=== PATIENT | female | born 1970 | race Caucasian/White ===

== ENCOUNTER 2016-11-02 09:51 | Emergency (ER) | payer OTHER, SELFPAY ==
[~2016-11-02] VITALS: Ht 157.5 cm; Wt 65.9 kg
[~2016-11-02 09:51] MED LIST: NOCURR
[2016-11-02 11:27] VITALS: BP 125/74
[2016-11-02] MEDS ORDERED: IBUPROFEN 800 MG TABLET PO ONE (11:30)
== END 2016-11-02 11:53 | disposition home or self-care (01) ==
LOC: EMS 09:53
DX: H60.91 Unspecified otitis externa, right ear (principal); F17.210 Nicotine dependence, cigarettes, uncomplicated
CPT/HCPCS: 99283

== ENCOUNTER 2016-12-21 13:53 | Emergency (ER) | payer OTHER ==
[~2016-12-21] VITALS: Ht 160 cm; Wt 68.2 kg
[2016-12-21 18:52] LABS: BASOPHILS % (AUTO) 0.9 % (0.0-2.0); EOSINOPHILS % (AUTO) 1.8 % (1.0-6.0); HEMOGLOBIN 12.7 g/dL (12.0-16.0); LYMPHOCYTES # (AUTO) 2.9 K/uL (1.0-4.8); LYMPHOCYTES % (AUTO) 43.7 % (22.0-44.0); MEAN CORPUSCULAR HEMOGLOBIN 30.3 pg (26.0-34.0); MEAN CORPUSCULAR HGB CONC 32.7 G/dL (31.0-37.0); MEAN CORPUSCULAR VOLUME 93 fL (80-100); MONOCYTES # (AUTO) 0.4 K/uL (0.1-1.0); MONOCYTES % (AUTO) 6.5 % (2.0-9.0); NEUTROPHILS # (AUTO) 3.1 K/uL (1.8-7.7); NEUTROPHILS % (AUTO) 47.1 % (40.0-70.0); PLATELET COUNT (AUTO) 228 K/uL (150-450); RED CELL DISTRIBUTION WIDTH 13.4 % (11.5-14.5); WHITE BLOOD COUNT (AUTO) 6.6 K/uL (4.5-11.0)
[2016-12-21 18:55] LABS: APPEARANCE,URINE CLOUDY (CLEAR); GLUCOSE, URINE (UA) NEGATIVE (NEGATIVE); KETONES,URINE NEGATIVE (NEGATIVE); LEUKOCYTE ESTERASE ,URINE NEGATIVE (NEGATIVE); OCCULT BLOOD,URINE NEGATIVE (NEGATIVE); PH,URINE 5.5 (5.0-8.0); PROTEIN,URINE NEGATIVE (NEGATIVE)
[2016-12-21 18:57] LABS: ADD UA MICROSCOPIC NO
[2016-12-21 20:15] VITALS: BP 124/76
== END 2016-12-21 20:16 | disposition home or self-care (01) ==
LOC: EMS 13:55
DX: N83.201 Unspecified ovarian cyst, right side (principal); F17.210 Nicotine dependence, cigarettes, uncomplicated
CPT/HCPCS: 76856; 99285

== ENCOUNTER 2018-05-08 11:38 | Emergency (ER) | payer OTHER ==
[~2018-05-08] VITALS: Ht 157.5 cm; Wt 63.6 kg
[2018-05-08] MEDS ORDERED: LORazepam 2 MG TABLET PO ONE (12:15)
[2018-05-08] MEDS ORDERED: HALOPERIDOL 5 MG TABLET PO ONE (12:15)
[2018-05-08 12:19] LABS: BASOPHILS % (AUTO) 0.8 % (0.0-2.0); EOSINOPHILS % (AUTO) 0.4 % (1.0-6.0); HEMATOCRIT 39.6 % (36-46); HEMOGLOBIN 13.3 g/dL (12.0-16.0); LYMPHOCYTES # (AUTO) 1.8 K/uL (1.0-4.8); LYMPHOCYTES % (AUTO) 29.2 % (22.0-44.0); MEAN CORPUSCULAR HEMOGLOBIN 30.6 pg (26.0-34.0); MEAN CORPUSCULAR HGB CONC 33.5 G/dL (31.0-37.0); MEAN CORPUSCULAR VOLUME 91 fL (80-100); MONOCYTES # (AUTO) 0.4 K/uL (0.1-1.0); NEUTROPHILS % (AUTO) 62.6 % (40.0-70.0); PLATELET COUNT (AUTO) 303 K/uL (150-450); RED BLOOD CELL COUNT(AUTO) 4.34 MIL/uL (4.00-5.20); RED CELL DISTRIBUTION WIDTH 13.6 % (11.5-14.5)
[2018-05-08 12:29] LABS: ANION GAP 7 mmol/L (8-16); CALCIUM, TOTAL 8.4 mg/dL (8.8-10.5); CARBON DIOXIDE 26 mmol/L (22-29); CHLORIDE 106 mmol/L (98-107); CREATININE 0.63 mg/dL (0.60-1.30); GLOMERULAR FILTR. RATE CALC > 60 mL/min (>60); GLUCOSE,RANDOM 93 mg/dL (70-110); POTASSIUM 3.9 mmol/L (3.5-5.1); SODIUM SERUM 139 mmol/L (136-145); UREA NITROGEN, BLOOD 10 mg/dL (7-18)
[2018-05-08 12:34] LABS: ALANINE AMINOTRANSFERASE 26 U/L (12-78); ALBUMIN 3.3 g/dL (3.4-5.0); ALKALINE PHOSPHATASE 65 U/L (46-116); ASPARTATE AMINOTRANSFERASE 21 U/L (15-37); BILIRUBIN,TOTAL 0.8 mg/dL (0.1-1.0); TOTAL PROTEIN, SERUM 6.8 g/dL (6.4-8.2)
[2018-05-08 14:00] VITALS: BP 118/67
== END 2018-05-08 15:02 | disposition home or self-care (01) ==
LOC: EMS 11:39
DX: F41.9 Anxiety disorder, unspecified (principal); F32.9 Major depressive disorder, single episode, unspecified; F17.210 Nicotine dependence, cigarettes, uncomplicated
CPT/HCPCS: 36415; 80053; 85025; 99284; 99406; G0480

== ENCOUNTER 2020-01-16 11:50 | Emergency (ER) | payer OTHER ==
[~2020-01-16] VITALS: Ht 167.6 cm; Wt 70.5 kg
[2020-01-16] MEDS ORDERED: ACETAMINOPHEN 500 MG TABLET PO ONE (12:45)
[2020-01-16 13:25] VITALS: BP 127/78
== END 2020-01-16 13:35 | disposition home or self-care (01) ==
LOC: EMS 11:51
DX: S60.011A Contusion of right thumb without damage to nail, initial encounter (principal); F32.9 Major depressive disorder, single episode, unspecified; F17.210 Nicotine dependence, cigarettes, uncomplicated; W23.0XXA Caught, crushed, jammed, or pinched between moving objects, initial encounter; Y93.89 Activity, other specified; Y92.89 Other specified places as the place of occurrence of the external cause; Y99.8 Other external cause status
CPT/HCPCS: 11740; 99406

== ENCOUNTER 2020-02-29 11:48 | Emergency (ER) | payer OTHER ==
[~2020-02-29] VITALS: Ht 157.5 cm; Wt 61.8 kg
[2020-02-29 12:51] LABS: BASOPHILS % (AUTO) 0.7 % (0.0-2.0); EOSINOPHILS % (AUTO) 0.5 % (1.0-6.0); HEMATOCRIT 44.5 % (36-46); LYMPHOCYTES # (AUTO) 1.8 K/uL (1.0-4.8); LYMPHOCYTES % (AUTO) 19.9 % (22.0-44.0); MEAN CORPUSCULAR HEMOGLOBIN 31.4 pg (26.0-34.0); MEAN CORPUSCULAR HGB CONC 33.7 G/dL (31.0-37.0); MEAN CORPUSCULAR VOLUME 93 fL (80-100); MONOCYTES # (AUTO) 0.5 K/uL (0.1-1.0); MONOCYTES % (AUTO) 5.5 % (2.0-9.0); NEUTROPHILS # (AUTO) 6.5 K/uL (1.8-7.7); NEUTROPHILS % (AUTO) 73.4 % (40.0-70.0); PLATELET COUNT (AUTO) 321 K/uL (150-450); RED BLOOD CELL COUNT(AUTO) 4.78 MIL/uL (4.00-5.20); RED CELL DISTRIBUTION WIDTH 14.6 % (11.5-14.5)
[2020-02-29 12:58] LABS: ANION GAP 5 mmol/L (8-16); CALCIUM, TOTAL 9.3 mg/dL (8.8-10.5); CARBON DIOXIDE 32 mmol/L (22-29); CHLORIDE 102 mmol/L (98-107); CREATININE 0.99 mg/dL (0.60-1.30); GLOMERULAR FILTR. RATE CALC 60 mL/min (>60); GLUCOSE,RANDOM 99 mg/dL (70-110); SODIUM SERUM 139 mmol/L (136-145); UREA NITROGEN, BLOOD 17 mg/dL (7-18)
[2020-02-29 13:03] LABS: ALANINE AMINOTRANSFERASE 43 U/L (12-78); ALBUMIN 3.9 g/dL (3.4-5.0); ALKALINE PHOSPHATASE 77 U/L (46-116); ASPARTATE AMINOTRANSFERASE 27 U/L (15-37); BILIRUBIN,TOTAL 0.3 mg/dL (0.1-1.0); TOTAL PROTEIN, SERUM 8.2 g/dL (6.4-8.2)
[2020-02-29 14:44] VITALS: BP 135/71
== END 2020-02-29 14:49 | disposition home or self-care (01) ==
LOC: EMS 11:49
DX: F10.10 Alcohol abuse, uncomplicated (principal); F32.9 Major depressive disorder, single episode, unspecified; F17.210 Nicotine dependence, cigarettes, uncomplicated; Y90.0 Blood alcohol level of less than 20 mg/100 ml
CPT/HCPCS: 36415; 80053; 85025; 99283; 99406; G0480

== ENCOUNTER 2022-10-04 11:11 | Emergency (ER) | payer OTHER ==
[~2022-10-04] VITALS: Ht 157.5 cm; Wt 65.9 kg
[2022-10-04 11:33] VITALS: BP 160/79
[2022-10-04 12:14] LABS: BASOPHILS % (AUTO) 1.3 % (0.0-2.0); EOSINOPHILS % (AUTO) 0.6 % (1.0-6.0); HEMATOCRIT 45.9 % (36-46); HEMOGLOBIN 15.3 g/dL (12.0-16.0); LYMPHOCYTES # (AUTO) 2.2 K/uL (1.0-4.8); LYMPHOCYTES % (AUTO) 41.9 % (22.0-44.0); MEAN CORPUSCULAR HEMOGLOBIN 30.5 pg (26.0-34.0); MEAN CORPUSCULAR HGB CONC 33.4 G/dL (31.0-37.0); MEAN CORPUSCULAR VOLUME 91 fL (80-100); MONOCYTES # (AUTO) 0.4 K/uL (0.1-1.0); MONOCYTES % (AUTO) 7.5 % (2.0-9.0); NEUTROPHILS # (AUTO) 2.6 K/uL (1.8-7.7); NEUTROPHILS % (AUTO) 48.7 % (40.0-70.0); PLATELET COUNT (AUTO) 298 K/uL (150-450); RED BLOOD CELL COUNT(AUTO) 5.03 MIL/uL (4.00-5.20); RED CELL DISTRIBUTION WIDTH 13.3 % (11.5-14.5)
[2022-10-04] MEDS ORDERED: LORazepam 1 MG TABLET PO ONE (12:15)
[2022-10-04 12:21] LABS: ANION GAP 8 mmol/L (8-16); CALCIUM, TOTAL 9.4 mg/dL (8.8-10.5); CARBON DIOXIDE 30 mmol/L (22-29); CHLORIDE 103 mmol/L (98-107); CREATININE 0.75 mg/dL (0.60-1.30); GLOMERULAR FILTR. RATE CALC > 60 mL/min (>60); GLUCOSE,RANDOM 96 mg/dL (70-110); POTASSIUM 4.3 mmol/L (3.5-5.1); SODIUM SERUM 141 mmol/L (136-145); UREA NITROGEN, BLOOD 9 mg/dL (7-18)
[2022-10-04 12:34] LABS: ALANINE AMINOTRANSFERASE 26 U/L (12-78); ALKALINE PHOSPHATASE 80 U/L (46-116); ASPARTATE AMINOTRANSFERASE 18 U/L (15-37); BILIRUBIN,TOTAL 0.4 mg/dL (0.1-1.0); HCG,QUANTITATIVE 5 mIU/mL (0-6)
[2022-10-04 12:36] LABS: B-TYPE NATRIURETIC PEPTIDE < 5 pg/mL (0-100)
[2022-10-04 12:40] LABS: CREATINE KINASE, TOTAL ONLY 50 U/L (26-192)
[2022-10-04 13:05] LABS: AMPHET/METH SCREEN,URINE NEGATIVE (NEGATIVE); BARBITURATE SCREEN, URINE NEGATIVE (NEGATIVE); BENZODIAZEPINES SCREEN,URINE NEGATIVE (NEGATIVE); CANNABINOID SCREEN,URINE NEGATIVE (NEGATIVE); COCAINE SCREEN,URINE NEGATIVE (NEGATIVE); METHADONE SCREEN, URINE NEGATIVE (NEGATIVE); OPIATE SCREEN,URINE NEGATIVE (NEGATIVE); PHENCYCLIDINE SCREEN,URINE NEGATIVE (NEGATIVE)
== END 2022-10-04 13:48 | disposition home or self-care (01) ==
LOC: EMS 11:25
DX: F41.9 Anxiety disorder, unspecified (principal); R07.89 Other chest pain; F32.A Depression, unspecified; F20.9 Schizophrenia, unspecified; F17.210 Nicotine dependence, cigarettes, uncomplicated; F15.90 Other stimulant use, unspecified, uncomplicated
CPT/HCPCS: 99284; 80053; 82550; 83880; 84484; 84702; 85025; 36415; 93005; 80307 ×2; G0480

== ENCOUNTER 2023-01-06 08:55 | Inpatient (IN) | payer MEDICAID, OTHER ==
[~2023-01-06] VITALS: Ht 162.6 cm; Wt 82.5 kg
[2023-01-06] MEDS ORDERED: RISP2TAB45 PO (09:28)
[2023-01-06] MEDS ORDERED: TRAZ-252 PO (09:28)
[2023-01-06] MEDS ORDERED: RISP3TAB35 PO (09:28)
[2023-01-06] MEDS ORDERED: RISP1TAB48 PO (09:28)
[2023-01-06 10:16] LABS: COVID AG,FIA SOURCE NASAL SWAB
[2023-01-06 10:20] LABS: BASOPHILS % (AUTO) 0.8 % (0.0-2.0); EOSINOPHILS % (AUTO) 0.4 % (1.0-6.0); HEMATOCRIT 44.2 % (36-46); HEMOGLOBIN 14.5 g/dL (12.0-16.0); LYMPHOCYTES # (AUTO) 1.5 K/uL (1.0-4.8); LYMPHOCYTES % (AUTO) 23.8 % (22.0-44.0); MEAN CORPUSCULAR HEMOGLOBIN 30.1 pg (26.0-34.0); MEAN CORPUSCULAR HGB CONC 32.7 G/dL (31.0-37.0); MEAN CORPUSCULAR VOLUME 92 fL (80-100); MONOCYTES # (AUTO) 0.4 K/uL (0.1-1.0); MONOCYTES % (AUTO) 6.5 % (2.0-9.0); NEUTROPHILS # (AUTO) 4.4 K/uL (1.8-7.7); NEUTROPHILS % (AUTO) 68.5 % (40.0-70.0); PLATELET COUNT (AUTO) 286 K/uL (150-450); RED BLOOD CELL COUNT(AUTO) 4.81 MIL/uL (4.00-5.20); RED CELL DISTRIBUTION WIDTH 13.2 % (11.5-14.5)
[2023-01-06 10:29] LABS: ANION GAP 8 mmol/L (8-16); CALCIUM, TOTAL 9.4 mg/dL (8.8-10.5); CARBON DIOXIDE 28 mmol/L (22-29); CHLORIDE 100 mmol/L (98-107); CREATININE 0.78 mg/dL (0.60-1.30); GLOMERULAR FILTR. RATE CALC > 60 mL/min (>60); GLUCOSE,RANDOM 110 mg/dL (70-110); POTASSIUM 4.1 mmol/L (3.5-5.1); SODIUM SERUM 136 mmol/L (136-145)
[2023-01-06 10:34] LABS: ALANINE AMINOTRANSFERASE 43 U/L (12-78); ALBUMIN 3.8 g/dL (3.4-5.0); ALKALINE PHOSPHATASE 101 U/L (46-116); ASPARTATE AMINOTRANSFERASE 29 U/L (15-37); BILIRUBIN,TOTAL 0.6 mg/dL (0.1-1.0)
[2023-01-06] MEDS ORDERED: NICOTINE 21 MG/24 HOUR PATCH TD ONE (11:15)
[2023-01-06] MEDS: LORazepam 2 MG TABLET PO PRN (13:23)
[2023-01-06 18:43] VITALS: BP 98/58
[2023-01-06 20:00] VITALS: BP 104/57
[2023-01-06] MEDS: ZOLPIDEM TARTRATE 10 MG TABLET PO PRN (20:29)
[2023-01-07 08:20] VITALS: BP 100/62
[2023-01-07] MEDS: NICOTINE 14 MG/24 HOUR PATCH TD SCH ×2 (08:37→09:35)
[2023-01-07] MEDS: QUEtiapine FUMARATE 100 MG TABLET PO PRN (09:58)
[2023-01-07] MEDS: LORazepam 2 MG TABLET PO PRN (10:24)
[2023-01-07] MEDS ORDERED: DIPH50CA35 PO (11:36)
[2023-01-07] MEDS ORDERED: PARO10TA71 PO (11:36)
[2023-01-07] MEDS ORDERED: OLAN15TA36 PO (11:36)
[2023-01-07] MEDS: RisperiDONE 1 MG TABLET PO SCH ×2 (12:05→20:38)
[2023-01-07 12:27] LABS: APPEARANCE,URINE CLEAR (CLEAR); BILIRUBIN,URINE NEGATIVE (NEGATIVE); GLUCOSE, URINE (UA) NEGATIVE (NEGATIVE); KETONES,URINE NEGATIVE (NEGATIVE); LEUKOCYTE ESTERASE ,URINE NEGATIVE (NEGATIVE); NITRATE,URINE NEGATIVE (NEGATIVE); OCCULT BLOOD,URINE NEGATIVE (NEGATIVE); PH,URINE 6.5 (5.0-8.0); PROTEIN,URINE NEGATIVE (NEGATIVE); SPECIFIC GRAVITIY, URINE 1.011 (1.003-1.030); UROBILINOGEN,URINE <=1.0 mg/dL (<=1.0)
[2023-01-07 12:38] LABS: AMPHET/METH SCREEN,URINE NEGATIVE (NEGATIVE); BARBITURATE SCREEN, URINE NEGATIVE (NEGATIVE); BENZODIAZEPINES SCREEN,URINE NEGATIVE (NEGATIVE); CANNABINOID SCREEN,URINE NEGATIVE (NEGATIVE); COCAINE SCREEN,URINE NEGATIVE (NEGATIVE); METHADONE SCREEN, URINE NEGATIVE (NEGATIVE); OPIATE SCREEN,URINE NEGATIVE (NEGATIVE); PHENCYCLIDINE SCREEN,URINE NEGATIVE (NEGATIVE)
[2023-01-07] MEDS: TraZODone HCL 50 MG TABLET PO SCH (20:38)
[2023-01-08 04:21] VITALS: BP 101/68
[2023-01-08 07:16] VITALS: BP 105/68
[2023-01-08] MEDS: LORazepam 2 MG TABLET PO PRN ×2 (07:27→15:50)
[2023-01-08] MEDS: RisperiDONE 1 MG TABLET PO SCH ×2 (08:19→21:10)
[2023-01-08] MEDS: NICOTINE 14 MG/24 HOUR PATCH TD SCH (08:20)
[2023-01-08 08:32] VITALS: BP 102/63
[2023-01-08] MEDS: TraZODone HCL 50 MG TABLET PO SCH (21:09)
[2023-01-08 23:11] VITALS: BP 90/61
[2023-01-09] MEDS: RisperiDONE 1 MG TABLET PO SCH ×2 (08:11→20:26)
[2023-01-09] MEDS: LORazepam 2 MG TABLET PO PRN ×2 (08:11→15:53)
[2023-01-09] MEDS: NICOTINE 14 MG/24 HOUR PATCH TD SCH (08:15)
[2023-01-09 08:29] VITALS: BP 105/73
[2023-01-09 20:03] VITALS: BP 125/80
[2023-01-09] MEDS: ZOLPIDEM TARTRATE 10 MG TABLET PO PRN (20:26)
[2023-01-09] MEDS: TraZODone HCL 50 MG TABLET PO SCH (20:26)
[2023-01-10 04:13] VITALS: BP 107/69
[2023-01-10] MEDS: QUEtiapine FUMARATE 100 MG TABLET PO PRN ×2 (04:16→13:24)
[2023-01-10] MEDS: LORazepam 2 MG TABLET PO PRN ×3 (04:16→17:31)
[2023-01-10] MEDS: RisperiDONE 1 MG TABLET PO SCH ×2 (08:20→20:32)
[2023-01-10] MEDS: NICOTINE 14 MG/24 HOUR PATCH TD SCH (08:39)
[2023-01-10] MEDS: TraZODone HCL 50 MG TABLET PO SCH (20:32)
[2023-01-10] MEDS: ZOLPIDEM TARTRATE 10 MG TABLET PO PRN (21:24)
[2023-01-10 21:26] VITALS: BP 101/63
[2023-01-11] MEDS: LORazepam 2 MG TABLET PO PRN ×2 (06:35→17:04)
[2023-01-11] MEDS: QUEtiapine FUMARATE 100 MG TABLET PO PRN ×2 (06:35→17:04)
[2023-01-11 08:30] VITALS: BP 100/60
[2023-01-11] MEDS: NICOTINE 14 MG/24 HOUR PATCH TD SCH (08:32)
[2023-01-11] MEDS: RisperiDONE 1 MG TABLET PO SCH ×2 (08:32→20:33)
[2023-01-11 20:03] VITALS: BP 110/78
[2023-01-11] MEDS: TraZODone HCL 50 MG TABLET PO SCH (20:33)
[2023-01-11] MEDS: ZOLPIDEM TARTRATE 10 MG TABLET PO PRN (20:33)
[2023-01-12] MEDS: LORazepam 2 MG TABLET PO PRN (07:00)
[2023-01-12] MEDS: RisperiDONE 1 MG TABLET PO SCH (08:05)
[2023-01-12] MEDS: NICOTINE 14 MG/24 HOUR PATCH TD SCH (08:05)
[2023-01-12 08:34] VITALS: BP 105/60
[2023-01-12] MEDS ORDERED: TRAZ-252 PO ×2 (12:55→23:18)
[2023-01-12] MEDS ORDERED: RISP2TAB45 PO (12:55)
[2023-01-12] MEDS ORDERED: LITH450CRT PO (12:55)
[2023-01-12] MEDS ORDERED: OLAN10TA26 PO (12:55)
[2023-01-12] MEDS ORDERED: RISP1TAB98 PO (23:18)
== END 2023-01-12 15:45 | disposition home or self-care (01) | DRG 750 ==
LOC: EMS 08:56 → B3A 12:50
PROVIDERS: ADMIT Psychiatry & Neurology Psychiatry; ATTEND Psychiatry & Neurology Psychiatry
DX: F25.1 Schizoaffective disorder, depressive type (principal); R45.851 Suicidal ideations; F41.9 Anxiety disorder, unspecified; G47.00 Insomnia, unspecified; F17.210 Nicotine dependence, cigarettes, uncomplicated; Z20.822 Contact with and (suspected) exposure to COVID-19; I10 Essential (primary) hypertension; Z79.899 Other long term (current) drug therapy; Z91.51 Personal history of suicidal behavior
CPT/HCPCS: 80053; 80307; 81003; 85025; 87081; 87340; 99285; G0480

== ENCOUNTER 2023-08-11 10:21 | Emergency (ER) | payer MEDICAID, OTHER ==
[~2023-08-11] VITALS: Ht 157.5 cm; Wt 86.4 kg
[~2023-08-11 10:21] MED LIST changes: -NOCURR; +RISP-31 PO; +RISP2TAB45 PO; +TRAZ-252 PO
[2023-08-11 10:23] VITALS: BP 150/100; PULSE 90; RESP 16; TEMP 98.3
[2023-08-11] MEDS ORDERED: IBUP-1492 PO (10:45)
[2023-08-11] MEDS ORDERED: ACETAMINOPHEN 500 MG TABLET PO ONE (10:45)
[2023-08-11] MEDS ORDERED: LIDOCAINE 5% TRANSDERMAL PATCH TD ONE (10:45)
[2023-08-11] MEDS ORDERED: LIDO700A15 TP (10:45)
[2023-08-11] MEDS ORDERED: ACET-3385 PO (10:45)
== END 2023-08-11 11:03 | disposition home or self-care (01) ==
LOC: EMS 10:22
DX: S13.4XXA Sprain of ligaments of cervical spine, initial encounter (principal); F10.20 Alcohol dependence, uncomplicated; F41.9 Anxiety disorder, unspecified; F32.A Depression, unspecified; F20.9 Schizophrenia, unspecified; F17.210 Nicotine dependence, cigarettes, uncomplicated; F15.90 Other stimulant use, unspecified, uncomplicated; Z98.890 Other specified postprocedural states; X58.XXXA Exposure to other specified factors, initial encounter; Y93.89 Activity, other specified; Y92.89 Other specified places as the place of occurrence of the external cause; Y99.8 Other external cause status
CPT/HCPCS: 99283

== ENCOUNTER 2024-06-16 13:04 | Emergency (ER) | payer OTHER ==
[~2024-06-16] VITALS: Ht 157.5 cm; Wt 93.1 kg
[~2024-06-16 13:04] MED LIST changes: +ACET-3385 PO; +IBUP-1492 PO; +LIDO700A15 TP
[2024-06-16 13:13] VITALS: BP 123/82; PULSE 82; RESP 20; TEMP 97.9; O2SAT 97
[2024-06-16] MEDS: ACETAMINOPHEN 500 MG TABLET PO ONE (14:21)
[2024-06-16] MEDS: PERTUSS(ACELL),DIPH,TET/PF 0.5 ML SYRINGE [ADULT] IM. ONE (14:22)
[2024-06-16] MEDS: IBUPROFEN 600 MG TABLET PO ONE (14:22)
[2024-06-16] MEDS ORDERED: ACET-66 PO (16:15)
[2024-06-16] MEDS ORDERED: IBUP-1554 PO (16:15)
== END 2024-06-16 16:58 | disposition home or self-care (01) ==
LOC: EMS 13:07
DX: S52.122A Displaced fracture of head of left radius, initial encounter for closed fracture (principal); S50.811A Abrasion of right forearm, initial encounter; F25.9 Schizoaffective disorder, unspecified; F41.9 Anxiety disorder, unspecified; F32.A Depression, unspecified; F17.210 Nicotine dependence, cigarettes, uncomplicated; F15.10 Other stimulant abuse, uncomplicated; W22.8XXA Striking against or struck by other objects, initial encounter; Y93.89 Activity, other specified; Y92.89 Other specified places as the place of occurrence of the external cause; Y99.8 Other external cause status
CPT/HCPCS: 90471; 90715; 99284

== ENCOUNTER 2025-06-02 10:46 | Emergency (ER) | payer OTHER ==
[~2025-06-02] VITALS: Ht 160 cm; Wt 86.4 kg
[~2025-06-02 10:46] MED LIST changes: +ACET-66 PO; +IBUP-1554 PO; +LIDO-57 TP; -LIDO700A15 TP
[2025-06-02 11:09] VITALS: TEMP 97.9
[2025-06-02 11:23] LABS: COVID AG,FIA SOURCE NASAL SWAB
[2025-06-02 12:32] LABS: RAPID GROUP A STREP NEGATIVE (NEGATIVE)
[2025-06-02 12:37] LABS: INFLUENZA TYPE A NEGATIVE FOR TYPE A (NEGATIVE); INFLUENZA TYPE B NEGATIVE FOR TYPE B (NEGATIVE)
[2025-06-02 12:39] LABS: SARS-COV2 (COVID) ANTIGEN,FIA Negative (Negative)
[2025-06-02] MEDS: ACETAMINOPHEN 500 MG TABLET PO ONE (13:13)
[2025-06-02 14:00] LABS: PLATELET COUNT (AUTO) 249 K/uL (150-450); RED BLOOD CELL COUNT(AUTO) 4.63 MIL/uL (4.00-5.20); RED CELL DISTRIBUTION WIDTH 13.9 % (11.5-14.5); WHITE BLOOD COUNT (AUTO) 6.9 K/uL (4.5-11.0)
[2025-06-02 14:05] LABS: CALCIUM, TOTAL 9.1 mg/dL (8.8-10.5); CREATININE 1.01 mg/dL (0.60-1.30); GLOMERULAR FILTR. RATE CALC 57 mL/min (>60); GLUCOSE,RANDOM 104 mg/dL (70-110); SODIUM SERUM 134 mmol/L (136-145); UREA NITROGEN, BLOOD 10 mg/dL (7-18)
[2025-06-02 14:13] LABS: TROPONIN I-HIGH SENSITIVITY Less Than 4 ng/L (<51)
[2025-06-02] MEDS ORDERED: ACET-2247 PO (14:25)
[2025-06-02 14:52] VITALS: BP 124/63; PULSE 78; RESP 18; O2SAT 99
== END 2025-06-02 15:00 | disposition home or self-care (01) ==
LOC: EMS 10:46
DX: J02.9 Acute pharyngitis, unspecified (principal); R07.89 Other chest pain; R13.10 Dysphagia, unspecified; F20.9 Schizophrenia, unspecified; F32.A Depression, unspecified; F41.9 Anxiety disorder, unspecified; F17.210 Nicotine dependence, cigarettes, uncomplicated; F15.90 Other stimulant use, unspecified, uncomplicated; Z79.899 Other long term (current) drug therapy; Z20.822 Contact with and (suspected) exposure to COVID-19
CPT/HCPCS: 71046; 80048; 83880; 84484; 85025; 87430; 87804; 93005; 99285; 36415-L1; 36415-TC